=== PATIENT | female | born 1995 | race Caucasian/White ===

== ENCOUNTER 2021-07-22 08:02 | Outpatient (CLI) | payer OTHER | END 2021-07-22 08:04 | disposition home or self-care (01) | LOC: SONOGRAMA 08:02 | PROVIDERS: ATTEND Pathology Anatomic Pathology & Clinical Pathology | DX: E04.1 Nontoxic single thyroid nodule (principal) ==

== ENCOUNTER 2023-05-21 12:49 | Outpatient (CLI) | payer OTHER | END 2023-05-21 12:50 | disposition home or self-care (01) | LOC: PRENATAL 12:49 | PROVIDERS: ATTEND Obstetrics & Gynecology Maternal & Fetal Medicine | DX: O35.9XX0 Maternal care for (suspected) fetal abnormality and damage, unspecified, not applicable or unspecified (principal); O35.3XX0 Maternal care for (suspected) damage to fetus from viral disease in mother, not applicable or unspecified; O44.00 Complete placenta previa NOS or without hemorrhage, unspecified trimester; O34.10 Maternal care for benign tumor of corpus uteri, unspecified trimester; Z3A.20 20 weeks gestation of pregnancy ==